=== PATIENT | female | born 1980 | race Caucasian/White ===

== ENCOUNTER 2016-05-30 17:33 | Emergency (ER) | payer BC ==
[2016-05-30 17:43] VITALS: TEMP 98.2
[2016-05-30 18:23] LABS: Basophils # (A) 0.2 k/uL (0-0.2); Basophils % (A) 2 %; CH 29.2; CHCM 33.1; Eosinophils # (A) 0.2 k/uL (0-0.7); Eosinophils % (A) 3 %; HCT 39.4 % (34.0-46.0); HGB 12.7 gm/dL (11.4-16.0); Luc % (Auto) 1; Lymphocytes # (A) 3.2 k/uL (1.0-4.8); Lymphocytes % (A) 36 %; MCH 28.6 pg (25.0-35.0); MCHC 32.3 g/dL (31.0-37.0); MCV 88.6 fL (80.0-100.0); Mean Platelet Volume 7.6; Monocytes # (A) 0.4 k/uL (0-1.0); Monocytes % (A) 5 %; Neutrophils # (A) 4.8 k/uL (1.3-7.7); Neutrophils % (A) 54 %; RBC 4.44 m/uL (3.80-5.40); RDW 12.7 % (11.5-15.5); WBC 8.9 k/uL (3.8-10.6); WBC (Perox) 8.85
--- NOTE | 2016-05-30 18:23 | ED ---
Weakness HPI - General Chief complaint: Weakness Stated complaint: LEFT SIDE FACIAL NUMBNESS, Time Seen by Provider: 05/30/16 17:51 Source: patient, family, RN notes reviewed Mode of arrival: wheelchair Limitations: no limitations - History of Present Illness Initial comments: This is a 35-year-old female with a personally benign past medical history who states she had the onset about a week ago some tongue numbness and change in her taste states she woke up this morning with some left facial numbness some dryness in her left eye. No headache no fevers chills or sweats no weakness to her arms or legs. No trauma. She states she was a family history of strokes heart disease at early age and diabetes she has none of the above. She is nonsmoker may have had a recent upper respiratory infection but no other issues to report. MD Complaint: focal weakness, numbness, tingling - Related Data Previous Rx's Medication Instructions Recorded predniSONE 60 mg PO DAILY #7 tab 05/30/16 valACYclovir HCL [Valacyclovir] 1,000 mg PO TID #21 tab 05/30/16 Allergies Allergy/AdvReac Type Severity Reaction Status Date / Time No Known Allergies Allergy Verified 05/30/16 18:19 Review of Systems ROS Statement: Those systems with pertinent positive or pertinent negative responses have been documented in the HPI. ROS Other: All systems not noted in ROS Statement are negative. Past Medical History Past Medical History: No Reported History History of Any Multi-Drug Resistant Organisms: None Reported Past Surgical History: No Surgical Hx Reported Past Psychological History: Anxiety, Depression Smoking Status: Never smoker Past Alcohol Use History: Rare Past Drug Use History: None Reported General Exam - General Exam Comments Initial Comments: This a well-developed well-nourished awake alert oriented 3 female Limitations: no limitations General appearance: alert, anxious Head exam: Present: other (Some mild left facial asymmetry with some lid lag in the left. The forehead is involved with this.) Eye exam: Present: PERRL, EOMI. Absent: normal appearance Pupils: Present: normal accommodation ENT exam: Present: normal exam, mucous membranes moist Neck exam: Present: normal inspection. Absent: tenderness, meningismus, lymphadenopathy Respiratory exam: Present: normal lung sounds bilaterally. Absent: respiratory distress, wheezes, rales, rhonchi, stridor Cardiovascular Exam: Present: regular rate, normal rhythm, normal heart sounds. Absent: systolic murmur, diastolic murmur, rubs, gallop, clicks GI/Abdominal exam: Present: soft, normal bowel sounds. Absent: distended, tenderness, guarding, rebound, rigid Extremities exam: Present: normal inspection, full ROM, normal capillary refill. 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 Absent: rash Course Vital Signs 05/30/16 17:39 Temperature 98.2 F Pulse Rate 84 Respiratory 20 Rate Blood Pressure 155/84 O2 Sat by Pulse 98 Oximetry EKG Findings - EKG Results: EKG: interpreted by YOSEPH MENSAHL, sinus rhythm, normal axis, normal QRS, normal ST/ T, no acute changes (Sinus rhythm a rate of 89 [place] interval 156 QRS duration 82 T -System QTC of 392/476 st-t wave changes) Medical Decision Making - Medical Decision Making I did a long discussion with patient family members regarding the findings patient's presentation is consistent with Medrano's palsy she'll be placed on appropriate medication she is a follow-up with her doctor and return when necessary - Lab Data Result diagrams: 05/30/16 18:04 05/30/16 18:04 Lab Results 05/30/16 05/30/16 Range/Units 18:04 18:04 WBC 8.9 (3.8-10.6) k/uL RBC 4.44 (3.80-5.40) m/uL Hgb 12.7 (11.4-16.0) gm/dL Hct 39.4 (34.0-46.0) % MCV 88.6 (80.0-100.0) fL MCH 28.6 (25.0-35.0) pg MCHC 32.3 (31.0-37.0) g/dL RDW 12.7 (11.5-15.5) % Plt Count 379 (150-450) k/uL Neutrophils % 54 % Lymphocytes % 36 % Monocytes % 5 % Eosinophils % 3 % Basophils % 2 % Neutrophils # 4.8 (1.3-7.7) k/uL Lymphocytes # 3.2 (1.0-4.8) k/uL Monocytes # 0.4 (0-1.0) k/uL Eosinophils # 0.2 (0-0.7) k/uL Basophils # 0.2 (0-0.2) k/uL Sodium 140 (137-145) mmol/L Potassium 3.9 (3.5-5.1) mmol/L Chloride 101 (98-107) mmol/L Carbon Dioxide 28 (22-30) mmol/L Anion Gap 11 mmol/L BUN 12 (7-17) mg/dL Creatinine 1.00 (0.52-1.04) mg/dL Est GFR (MDRD) Af Amer >60 (>60 ml/min/1.73 sqM) Est GFR (MDRD) Non-Af >60 (>60 ml/min/1.73 sqM) Glucose 110 H (74-99) mg/dL Calcium 9.1 (8.4-10.2) mg/dL Magnesium 2.0 (1.6-2.3) mg/dL Total Bilirubin 0.7 (0.2-1.3) mg/dL AST 28 (14-36) U/L ALT 57 H (9-52) U/L Alkaline Phosphatase 67 (38-126) U/L Total Protein 7.8 (6.3-8.2) g/dL Albumin 4.3 (3.5-5.0) g/dL TSH 1.470 (0.465-4.680) mIU/L - Radiology Data Radiology results: report reviewed (Did review the imaging and report no acute findings), image reviewed Disposition Clinical Impression: Medrano's palsy Disposition: HOME SELF-CARE Condition: Good Instructions: Medrano Palsy (ED) Prescriptions: predniSONE 60 mg PO DAILY #7 tab valACYclovir HCL [Valacyclovir] 1,000 mg PO TID #21 tab
[2016-05-30 18:26] LABS: ALT 57 U/L (9-52); AST 28 U/L (14-36); Alkaline Phosphatase 67 U/L (38-126); Anion Gap 11 mmol/L; Blood Urea Nitrogen 12 mg/dL (7-17); Calcium 9.1 mg/dL (8.4-10.2); Carbon Dioxide 28 mmol/L (22-30); Chloride 101 mmol/L (98-107); Glucose 110 mg/dL (74-99); Non-African American GFR(MDRD) >60 (>60 ml/min/1.73 sqM); Potassium 3.9 mmol/L (3.5-5.1); Sodium 140 mmol/L (137-145); Total Bilirubin 0.7 mg/dL (0.2-1.3); Total Protein 7.8 g/dL (6.3-8.2)
[2016-05-30] MEDS ORDERED: ACYCLOVIR 800 MG TAB PO STA (18:38)
[2016-05-30] MEDS ORDERED: predniSONE 50 MG TAB PO STA (18:38)
--- NOTE | 2016-05-30 18:38 | CT ---
EXAMINATION TYPE: CT brain wo con DATE OF EXAM: 05/30/2016 6:24 PM COMPARISON: NONE HISTORY: left sided tongue numbness and facial droop CT DLP: 1189 mGycm Automated exposure control for dose reduction was used. FINDINGS: There is no acute intracranial hemorrhage, mass effect, or midline shift identified. The ventricles and sulci are within normal limits in size. The globes are intact and the visualized sinuses are walt ar. IMPRESSION: No acute intracranial hemorrhage, mass effect, or midline shift is seen.
[2016-05-30 19:28] VITALS: BP 147/95; PULSE 89; RESP 16
== END 2016-05-30 19:33 | disposition home or self-care (01) ==
LOC: EC 17:33
DX: G51.0 Bell's palsy (principal)
CPT/HCPCS: 99285; 36415; 93005; 80053; 84443; 83735; 85025; 70450; J7512

== ENCOUNTER → 2020-12-21 | Outpatient (CLI) | payer BC ==
--- NOTE | 2020-12-26 11:24 | MM ---
Reason for exam: screening (asymptomatic). Baseline mammogram. History: Patient is nulliparous. Physical Findings: Nurse did not find any significant physical abnormalities on exam. MG 3D Screening Mammo W/Cad Bilateral CC and MLO view(s) were taken. Finding: There is a typically benign 5 mm equal density (isodense), circumscribed oval mass located 8 cm from the nipple in the 1 o'clock upper outer quadrant, middle position of the left breast. Focal asymmetry right upper inner quadrant 8cm from the nipple. ASSESSMENT: Incomplete: need additional imaging evaluation, BI-RAD 0 RECOMMENDATION: Special view mammogram of the right breast. Ultrasound of both breasts. [facility] will attempt to contact patient to return for supplemental views and ultrasound.
== END | disposition home or self-care (01) ==
LOC: RADMAMWWP 10:44
PROVIDERS: ATTEND Family Medicine
DX: Z12.31 Encounter for screening mammogram for malignant neoplasm of breast (principal)
CPT/HCPCS: 77063; 77067

== ENCOUNTER → 2021-01-11 | Outpatient (CLI) | payer BC ==
--- NOTE | 2021-01-11 12:27 | MM ---
Reason for exam: additional evaluation requested from abnormal screening. Last mammogram was performed 1 month ago. History: Patient is nulliparous. Physical Findings: Breast exam preformed at baseline screening. MG 3D Work Up W/Cad RT Spot compression CC, spot compression MLO, XCCL, and LM view(s) were taken of the right breast. Prior study comparison: December 21, 2020, bilateral MG 3d screening mammo w/cad. There are scattered fibroglandular densities. Densities upper outer right breast and upper inner right breast persist. Ultrasound recommended. These results were verbally communicated with the patient and result sheet given to the patient on 01/11/21. ASSESSMENT: Incomplete: need additional imaging evaluation, BI-RAD 0 RECOMMENDATION: Ultrasound of the right breast.
--- NOTE | 2021-01-11 12:29 | USB ---
Reason for exam: additional evaluation requested from abnormal screening. History: Patient is nulliparous. US Breast Workup Limited GABRIELLA Right limited breast ultrasound including focal area of concern, retroareolar and axilla demonstrates a 1.0 x 0.9 x 0.9cm hypoechoic lesion at 12 o'clock, biopsy recommended. Left limited breast ultrasound including focal area of concern, retroareolar and axilla demonstrates a 0.7 x 0.3 x 0.6cm cystic lesion at 1 o'clock. These results were verbally communicated with the patient and result sheet given to the patient on 01/11/21. ASSESSMENT: Suspicious, BI-RAD 4 RECOMMENDATION: Ultrasound core biopsy of the right breast. (12 o'clock) Called Dr. Tamez's office with mammographic findings and has scheduled an appointment for the patient for 02/01/21 at 4:[address] Orosco. Biopsy schedueled for 01/19/21 at 10:30. PRELIMINARY REPORT CALLED AND FAXED TO DR. OROSCO ON 01/11/21.
== END | disposition home or self-care (01) ==
LOC: RADMAMWWP 08:11
PROVIDERS: ATTEND Family Medicine
DX: N64.89 Other specified disorders of breast (principal); N60.02 Solitary cyst of left breast
CPT/HCPCS: 77061; 77065

== ENCOUNTER → 2021-01-19 | Day surgery (SDC) | payer BC ==
[2021-01-19 10:32] VITALS: RESP 16
[2021-01-19 11:51] VITALS: BP 130/84; PULSE 69; TEMP 98.3
--- NOTE | 2021-01-19 13:10 | USB ---
EXAMINATION TYPE: US biopsy breast VAD RT DATE OF EXAM: 01/19/2021 CLINICAL HISTORY: R92.8 ABNORMAL MAMMOGRAM. TECHNIQUE: Ultrasound guided vaccuum assisted core biopsy of right breast. COMPARISON: Ultrasound 01/11/2021 FINDINGS: The ultrasound guided core biopsy procedure was explained to the patient. The risks, benef its, alternatives were discussed. An informed consent was then obtained. Timeout was performed. The patient was placed in supine positioning for imaging and for the procedure. The overlying skin w as prepped with betadine and sterilely draped in usual sterile fashion. Lidocaine 1% was used as ane sthetic into the skin and deeper breast tissue up to area of concern in the breast. A small skin corie k was made with surgical scalpel. Under ultrasound guidance, a 12-gauge vacuum assisted biopsy device was used to obtain 6 core samples . A biopsy clip was left in lesion. Ribbon clip was placed. Good hemostasis was obtained with direct pressure. Discharge instructions were discussed with the pa janey. The patient will follow up with the referring physician for results. Postprocedure mammogram: The patient was transferred to mammography for physician ordered post proced ure mammogram for clip placement verification. The clip is in the expected region of the biopsy. The patient tolerated the procedure well without any immediate complication. The patient was dischar ged to home in stable condition. IMPRESSION: 1. Successful ultrasound guided biopsy right breast. Recommendations: 1. Recommendations are pending pathology results.
== END ==
LOC: RADUSWWP 10:03
PROVIDERS: ATTEND Surgery
DX: D24.1 Benign neoplasm of right breast (principal)
CPT/HCPCS: 88305; 77065; 19083; A4648; J2001

== ENCOUNTER → 2021-07-24 | Outpatient (CLI) | payer BC ==
--- NOTE | 2021-07-24 11:27 | MM ---
Reason for exam: follow-up at short interval from prior study. Last mammogram was performed 6 months ago. History: Patient is nulliparous. Benign US biopsy breast VAD RT of the right breast, January 19, 2021. Physical Findings: A clinical breast exam by your physician is recommended on an annual basis and results should be correlated with mammographic findings. MG 3D Diag Mammo W/Cad GABRIELLA Bilateral CC and MLO view(s) were taken. Prior study comparison: January 19, 2021, right breast MG diagnostic mammo RT wo CAD. January 11, 2021, right breast MG 3d work up w/cad RT. There are scattered fibroglandular densities. No significant new findings when compared with previous films. These results were verbally communicated with the patient and result sheet given to the patient on 07/24/21. ASSESSMENT: Benign, BI-RAD 2 RECOMMENDATION: Routine screening mammogram of both breasts in 1 year.
== END | disposition home or self-care (01) ==
LOC: RADMAMWWP 10:50
PROVIDERS: ATTEND Surgery
DX: R92.8 Other abnormal and inconclusive findings on diagnostic imaging of breast (principal)
CPT/HCPCS: 77062; 77066

== ENCOUNTER → 2023-02-27 | Outpatient (CLI) | payer BC ==
--- NOTE | 2023-02-27 13:00 | FL ---
EXAMINATION TYPE: FL barium swallow w video DATE OF EXAM: 02/27/2023 CLINICAL HISTORY: 42-year-old female R1 3.12, oropharyngeal phase Dysphagia. Gagging especially at n ight with occasional vomiting. TECHNIQUE: Deglutition study is performed utilizing thin liquid barium, barium thick pudding, and ba rium coated cracker. Total fluoroscopy time: 36 seconds DOSE AREA PRODUCT (DAP) UGY*M,MGY*CM: 5 Total images: None. Real-time fluoroscopy support was provided to speech pathology. COMPARISON: None. FINDINGS: The oral and pharyngeal phases show satisfactory initiation and propagation with all modalities teste d. Normal mastication is seen with solid modalities tested. There is no evidence of penetration or aspiration with any modality tested. No significant pharyngeal residue was appreciated. IMPRESSION: Normal dynamic swallow study. Please refer to speech therapist notes for further details if necessa ry.
== END | disposition home or self-care (01) ==
LOC: RADFLMAIN 10:52
PROVIDERS: ATTEND Otolaryngology
DX: R13.12 Dysphagia, oropharyngeal phase (principal); R11.10 Vomiting, unspecified
CPT/HCPCS: 74230

== ENCOUNTER → 2023-05-31 | Day surgery (SDC) | payer BC ==
[2023-05-24 15:57] VITALS: BMI 35.6
[~2023-05-31] MED LIST: DEXAMETHASONE SOD PHOSPHATE 10 MG/ML 1 ML VIAL IVP ONE; KETAMINE HCL IN 0.9 % NACL 50 MG/5 ML SYRINGE ONE; LACTATED RINGERS 1,000 ML IV ONE; LACTATED RINGERS 1,000 ML IV SCH; LIDOCAINE 1% INJ 10MG/ML (20 ML MDV) ONE; LIDOCAINE 2% INJ 20 MG/ML INTRATRACH ONE; ONDANSETRON 4 MG/2 ML VIAL IVP ONE; ONDANSETRON 4 MG/2 ML VIAL ONE; PROPOFOL 10 MG/ML 20 ML VIAL IV ONE
[2023-05-31 12:17] VITALS: RESP 16; TEMP 98.6
--- NOTE | 2023-05-31 12:50 | PCN ---
PROCEDURE NOTE PROCEDURES PERFORMED: Bronchoscopy, airway examination, therapeutic lavage, BAL right middle lobe. PREOPERATIVE DIAGNOSIS: Chronic cough. POSTOPERATIVE DIAGNOSIS: Chronic cough. CIGAR ROLLER: First surgical services coordinator was Dr. Dayan Springer. ANESTHESIA: Provided general anesthesia. DESCRIPTION OF PROCEDURE: The patient's procedure took place in room #1 [facility]. There was informed consent and universal timeout. After the patient was adequately sedated and being fully monitored, the bronchoscope was inserted through the right nostril. It passed through the right nasopharynx into the oropharynx. The hypopharynx was identified and topicalized. The hypopharyngeal structures appeared normal including anterior commissure, true cords, false cords, arytenoids, piriform sinuses, right and left, vallecula. After topicalization, the bronchoscope was pushed through the glottic opening into the trachea. Trachea appeared normal. There was no tracheal mass or tumor. There were no secretions. Tracheal margoth was sharp. Next the right and left mainstem were topicalized. The right upper lobe and its 3 segments, right middle lobe and its 2 segments, right lower lobe and its 5 segments, left upper lobe proper and its 2 segments, lingula and its 2 segments and left lower lobe and its 4 segments were all found to be relatively normal. There was chzo-ni-qjmmnrls bronchitis. There was no bleeding. There was no dominant mass or tumor. There were minimal frothy secretions. The bronchoscope was then wedged into the middle lobe. We did a formal BAL. 30 mL of fluid was recovered. It was mildly turbid. The fluid will be sent for analysis. After the procedure was completed, any additional secretions were suctioned and the bronchoscope was withdrawn. The patient will be recovered. There was no immediate complication. MMODL / IJN: [id number] /
[2023-05-31 13:05] VITALS: BP 144/88; PULSE 79
[2023-06-01 05:55] LABS: Appearance,BF Cloudy (Clear); RBC, Body Fluid 3688 /UL (0-2000)
[2023-06-03 09:29] LABS: Nucleated Cells, Body Fluid 203 /UL
== END | disposition home or self-care (01) ==
LOC: ORWHC2ENDO 11:25
PROVIDERS: ATTEND Internal Medicine Critical Care Medicine
DX: J40 Bronchitis, not specified as acute or chronic (principal); Z79.899 Other long term (current) drug therapy; D50.9 Iron deficiency anemia, unspecified; F41.9 Anxiety disorder, unspecified; F32.A Depression, unspecified; K21.9 Gastro-esophageal reflux disease without esophagitis; Z80.9 Family history of malignant neoplasm, unspecified
CPT/HCPCS: 81025; 88108; 88305; 89050; 87070; 87205; 87116; 87102; 87206; 31624; J2001 ×2; J1100; J2405; J2704

== ENCOUNTER → 2023-07-19 | Outpatient (CLI) | payer BC ==
--- NOTE | 2023-07-21 20:58 | CT ---
EXAMINATION TYPE: High-resolution CT chest DATE OF EXAM: 07/19/2023 COMPARISON: Radiographs 05/16/2023 HISTORY: 42-year-old female J40, bronchitis not specified as acute or chronic, cough TECHNIQUE: Thin cut CT of the chest in both prone and supine positioning per HRCT protocol. Additiona l expiratory phase was obtained. No IV contrast. CT DLP: 1387.5mGycm. Automatic exposure control utilized for a dose reduction. FINDINGS: The heart is normal size without pericardial effusion. Aorta normal caliber with conventional arch vessel branching anatomy. No thoracic lymph adenopathy by CT size criteria. There is mild diffuse bronchial wall thickening without consolidation or pleural effusion. No honeyco mbing, thickening of the bronchovascular bundles, dominant groundglass, centrilobular nodules, tree-i n-bud opacities, significant emphysema, or perilymphatic nodularity. No consolidation or pleural effu goldie. Some generalized groundglass atelectasis develops on expiratory phase. There appears to be a very large mass at the left upper quadrant measuring at least 12.0 cm. Further contrast enhanced evaluation of the abdomen and pelvis is advised. Differential consideration include s a large RCC. IMPRESSION: 1. Note incidentally visualized large mass of the left upper quadrant measuring at least 12.0 cm. Pos sible RCC. Further contrast enhanced CT of the abdomen and pelvis is advised. 2. Bronchial wall thickening suggests bronchitis or chronic asthma. No other acute process or other s pecific findings of an interstitial pneumonitis is seen.
== END | disposition home or self-care (01) ==
LOC: RADCTMAIN 13:04
PROVIDERS: ATTEND Internal Medicine Critical Care Medicine
DX: J98.09 Other diseases of bronchus, not elsewhere classified (principal); J40 Bronchitis, not specified as acute or chronic; J84.9 Interstitial pulmonary disease, unspecified
CPT/HCPCS: 71250

== ENCOUNTER → 2023-08-07 | Outpatient (CLI) | payer BC ==
--- NOTE | 2023-08-07 13:53 | CT ---
EXAMINATION TYPE: CT abdomen w con CT DLP: 1523 mGycm, Automated exposure control for dose reduction was used. DATE OF EXAM: 08/07/2023 1:38 PM COMPARISON: None. CLINICAL INDICATION:Female, 42 years old with history of C83.33 LYMPHOMA; renal mass TECHNIQUE: Axial CT of the abdomen and pelvis. Sagittal and coronal reformats were created on a [employer] workstation. Contrast used:100 mL of Isovue 300 with IV Contrast, (none if empty) Oral contrast used: with Oral Contrast (none if empty) FINDINGS: LOWER CHEST: Unremarkable ABDOMEN LIVER: Unremarkable GALLBLADDER AND BILE DUCTS: Unremarkable. PANCREAS: Unremarkable. SPLEEN: Unremarkable. ADRENAL GLANDS: Unremarkable. KIDNEYS AND URETERS: Right kidney solid appearing lesion involving the inferior pole measuring 2.6 cm . Additional right renal cysts are appreciated. Large heterogenous left renal mass measuring 12.4 x 10.4 cm in the axial plane. The mass does extend to involve the region of the renal pelvis. No calcifications are appreciated. The mass doesn't enhanc e heterogenous lytic, with suspected low attenuation/necrotic internal portions. Mass does create ma ss effect upon the surrounding intra-abdominal structures but appears to be contained within the negra ta's fascia. STOMACH AND BOWEL: Stomach and duodenum are unremarkable No evidence of bowel obstruction. PERITONEUM/RETROPERITONEUM: No evidence of pneumoperitoneum or free fluid. VASCULATURE: No evidence of aortic aneurysm. MUSCULOSKELETAL: No acute osseous abnormalities. Moderate disc degeneration changes are present throu ghout the thoracolumbar spine. LYMPH NODES: No gross evidence for lymphadenopathy. SOFT TISSUE/ABDOMINAL WALL: Unremarkable IMPRESSION: 1. Large heterogenous left renal mass. Further evaluation via tissue sampling is recommended to excl ude underlying malignancy. 2. Nonspecific solid-appearing right renal lesion measuring 2.5 cm. Consider further evaluation with dedicated MRI of the abdomen renal mass protocol or comparison with any outside imaging to assess sta bility.
== END | disposition home or self-care (01) ==
LOC: RADCTMAIN 12:15
PROVIDERS: ATTEND Internal Medicine Critical Care Medicine
DX: N28.89 Other specified disorders of kidney and ureter (principal); C83.33 Diffuse large B-cell lymphoma, intra-abdominal lymph nodes; R19.09 Other intra-abdominal and pelvic swelling, mass and lump
CPT/HCPCS: 74160; Q9967

== ENCOUNTER → 2023-08-24 | Outpatient (CLI) | payer BC ==
--- NOTE | 2023-08-28 19:35 | MR ---
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 TECHNIQUE: Multiplanar multi-sequence imaging was performed without contrast. Post contrast imaging was performed. Post IV contrast subtraction images were also submitted for review. IV Contrast: 10.5 cc Gadavist FINDINGS: LOWER CHEST: No gross irregularity. ABDOMEN Liver: No evidence for hepatic steatosis or cirrhosis. Gallbladder and Bile ducts: No evidence for ductal dilation, or biliary stricture or evidence of chol edocholithiasis. The gallbladder is within normal limits. Pancreas: No ductal dilation. No evidence for solid mass. Spleen: Normal for size. Adrenal glands: Unremarkable. Kidneys: Multiple right renal masses the largest medially measuring 35 x 26 mm, laterally 27 x 20 mm. In the s uperior renal pole and more inferiorly anteriorly in the inferior renal pole measuring 35 x 24 mm. Additional right renal high T2 signal appearing cyst. Large left renal mass measuring 13.5 x 11.42 m. Stomach and Bowel: No evidence for bowel wall thickening or evidence for obstruction. Scattered colon ic diverticula present. Retroperitoneum/Peritoneum: No evidence of pneumoperitoneum or free fluid. Vasculature: No aortic aneurysm. Musculoskeletal: The osseous structures appear intact. Lymph Nodes: Left retroperitoneal lymph node measuring 9 mm possibly representing early metastatic di sease. Abdominal wall: Unremarkable. Reproductive: Multiple low T2 signal fibroid changes are present. IMPRESSION: 1. Multiple bilateral renal masses. Multiple bilateral renal masses can be seen in lymphoma possibly a underlying hereditary syndrome such as von Hippel-Lindau, tuberous sclerosis versus others. Tissue sampling recommended for definitive diagnosis. Urology consultation recommended. 2. Single left retroperitoneal lymph node suspicious for metastatic disease.
== END | disposition home or self-care (01) ==
LOC: RADMRIMAIN 09:15
PROVIDERS: ATTEND Urology
DX: D41.02 Neoplasm of uncertain behavior of left kidney (principal); D41.01 Neoplasm of uncertain behavior of right kidney; N28.89 Other specified disorders of kidney and ureter
CPT/HCPCS: 74183; A9585

== ENCOUNTER → 2023-08-29 | Outpatient (CLI) | payer BC ==
--- NOTE | 2023-08-30 07:53 | NM ---
EXAMINATION TYPE: NM bone scan whole body DATE OF EXAM: 08/29/2023 COMPARISON: CT abdomen 08/07/2011 CLINICAL INDICATION: Female, 42 years old with history of D41.02 RENAL MASS D41.01; Delayed whole-body scanning was performed following the injection of 20 2. mCi Tc 99m MDP. Images ac quired four hours post injection. FINDINGS: Abnormal uptake moderate intensity in diaphysis of the left femur. No prior x-rays available. Recomme nd correlation with x-ray. Finding nonspecific. Abnormal uptake involving the calvarium on the basis of hyperostosis. Abnormal uptake involving the shoulders and likely post arthritic. There is abnormal uptake involving the right ankle which could be posttraumatic or post arthritic. Abnormal uptake involving the left fifth digit compatible with post arthritic change. Asymmetric increased uptake along the left iliac crest appears to correspond to the enthesophyte by r ecent CT scan. There is reduced uptake involving the knee joint. Correlate for prior surgery. Finding is symmetric. Otherwise, would recommend x-ray correlation. Mild intensity uptake involving the mid and lower thoracic spine most likely is degenerative. IMPRESSION: Abnormal uptake involving the left mid diaphysis of the femur is nonspecific. Recommend x-ray correla tion.
== END | disposition home or self-care (01) ==
LOC: RADNMMAIN 10:50
PROVIDERS: ATTEND Urology
DX: D41.02 Neoplasm of uncertain behavior of left kidney (principal); D41.01 Neoplasm of uncertain behavior of right kidney
CPT/HCPCS: 78306; A9503

== ENCOUNTER 2023-09-13 10:03 | Emergency (ER) | payer BC ==
--- NOTE | 2023-09-13 10:25 | ED ---
Recheck HPI - General Source: patient, RN notes reviewed <Bárbara Hernandez - Last Filed: 09/13/23 10:22> - General Source: patient, family, RN notes reviewed, old records reviewed Limitations: no limitations <Deangelo Longoria - Last Filed: 09/13/23 19:14> - General Stated Complaint: Abn labs Time Seen by Provider: 09/13/23 10:18 - History of Present Illness Initial Comments: Quick noteis a 43-year-old female with a history of kidney cancer who presents emergency department chief complaint of low hemoglobin. Patient states that she was contacted by her PCP Dr. Mathur to report to the ER for a low Hgb level of 7. Patient denies current chemo and radiation. (Bárbara Hernandez) Patient is a 43-year-old female presenting to the emergency department with anemia. Patient does have chronic anemia. Patient has a recent diagnosis of renal cell cancer bilaterally. Patient is pending appointment at [facility] next week for probable surgical extraction. No chemotherapy at this time. Patient also just finished her menstrual cycle. No dark tarry stools. No hematuria. No hematochezia or hematemesis. Patient has been fatigued for several months with decreased appetite. Patient last hemoglobin was 8.7. Recheck yesterday was below 7. Patient was sent by her doctor for blood work. (Deangelo Longoria) - Related Data Home Medications Medication Instructions Recorded Confirmed Ferrous Sulfate [Iron (65 MG 325 mg PO DAILY 05/24/23 09/13/23 Elemental)] Albuterol Inhaler [Ventolin Hfa 2 puff INHALATION RT-Q4H PRN 09/13/23 09/13/23 Inhaler] Albuterol Nebulized [Ventolin 2.5 mg INHALATION RT-QID PRN 09/13/23 09/13/23 Nebulized] Cholecalciferol [Vitamin D3 (25 25 mcg PO DAILY 09/13/23 09/13/23 Mcg = 1000 Iu)] Allergies Allergy/AdvReac Type Severity Reaction Status Date / Time No Known Allergies Allergy Verified 09/13/23 16:22 Review of Systems ROS Other: All systems not noted in ROS Statement are negative. <Bárbara Hernandez - Last Filed: 09/13/23 10:22> ROS Other: All systems not noted in ROS Statement are negative. Constitutional: Denies: fever Eyes: Denies: eye pain ENT: Denies: ear pain Respiratory: Reports: cough (Chronic, unchanged). Denies: dyspnea Cardiovascular: Denies: chest pain Endocrine: Reports: fatigue Gastrointestinal: Denies: abdominal pain, hematemesis, melena, hematochezia Genitourinary: Denies: dysuria, hematuria Musculoskeletal: Denies: back pain Skin: Denies: rash <Deangelo Longoria - Last Filed: 09/13/23 19:14> ROS Statement: Those systems with pertinent positive or pertinent negative responses have been documented in the HPI. Past Medical History Past Medical History: No Reported History Additional Past Medical History / Comment(s): cough that won't go away History of Any Multi-Drug Resistant Organisms: None Reported Past Surgical History: Appendectomy, Orthopedic Surgery Additional Past Surgical History / Comment(s): 1998- ovarian cyst removal. left leg fracture-surgery age 12 Additional Past Anesthesia/Blood Transfusion Reaction / Comment(s): states had a fever for three days after anesthesia. no blood transfusion Smoking Status: Never smoker - Past Family History Father Family Medical History: Cancer Additional Family Medical History / Comment(s): agent orange Mother Family Medical History: Cancer Additional Family Medical History / Comment(s): kidney <Bárbara Hernandez - Last Filed: 09/13/23 10:22> General Exam <Bárbara Hernandez - Last Filed: 09/13/23 10:22> Limitations: no limitations General appearance: alert, in no apparent distress Head exam: Present: normocephalic Eye exam: Present: normal appearance ENT exam: Present: normal oropharynx Neck exam: Present: normal inspection Respiratory exam: Present: normal lung sounds bilaterally Cardiovascular Exam: Present: regular rate, normal rhythm GI/Abdominal exam: Present: soft. Absent: tenderness Rectal exam: Present: deferred (Discussion had with patient however she refuses ) Extremities exam: Present: normal inspection Neurological exam: Present: alert Psychiatric exam: Present: normal affect, normal mood Skin exam: Present: normal color <Deangelo Longoria - Last Filed: 09/13/23 19:14> - General Exam Comments Initial Comments: Visual Physical Exam Vital signs reviewed General: Well-appearing, nontoxic, no acute distress. Head: Normocephalic, atraumatic Eyes: PERRLA, EOMI ENT: Airway patent Chest: Nonlabored breathing Skin: No visual rash, normal skin tone Neuro: Alert and oriented 3 Musculoskeletal: No gross abnormalities (Bárbara Hernandez) Course Vital Signs 09/13/23 09/13/23 10:20 19:08 Temperature 98.6 F 98.4 F Pulse Rate 92 84 Respiratory 18 18 Rate Blood Pressure 131/79 140/77 O2 Sat by Pulse 97 100 Oximetry Medical Decision Making <Bárbara Hernandez - Last Filed: 09/13/23 10:22> - Lab Data Result diagrams: 09/13/23 10:48 09/13/23 10:48 <Deangelo Longoria - Last Filed: 09/13/23 19:14> - Medical Decision Making I completed the quick note portion of this chart signed Bárbara Hernandez PA-C (Bárbara Hernandez) Was pt. sent in by a medical professional or institution ([facility], NEWSPAPER LIBRARY MANAGER, urgent care, hospital, or fdc...) When possible be specific @ -Patient was sent in by her primary care physician Did you speak to anyone other than the patient for history (EMS, parent, family, police, friend...)? What history was obtained from this source @ -Family is present and helps provide history including history of renal cell carcinoma and plan for surgical consultation next week Did you review nursing and triage notes (agree or disagree)? Why? @ -I reviewed and agree with nursing and triage notes Were old charts reviewed (outside hosp., previous admission, EMS record, old EKG, old radiological studies, urgent care reports/EKG's, fdc records)? Report findings @ -Previous CT scan abdomen pelvis reviewed showing similar findings to today Differential Diagnosis (chest pain, altered mental status, abdominal pain women, abdominal pain men, vaginal bleeding, weakness, fever, dyspnea, syncope, headache, dizziness, GI bleed, back pain, seizure, CVA, palpatations, mental health, musculoskeletal)? @ -Differential Weakness: Hypoglycemia, shock, sepsis, hyponatremia, anemia, infection, OH, ETOH, adverse medicine reaction, overdose, stroke, this is not meant to be an all-inclusive list. EKG interpreted by me (3pts min.). @ -As above X-rays interpreted by me (1pt min.). @ -None done CT interpreted by me (1pt min.). @ -CT scan abdomen pelvis shows renal disease left greater than right. U/S interpreted by me (1pt. min.). @ -None done What testing was considered but not performed or refused? (CT, X-rays, U/S, labs)? Why? @ -Recommended Hemoccult however patient refuses What meds were considered but not given or refused? Why? @ -None Did you discuss the management of the patient with other professionals (professionals i.e. , PA, NEWSPAPER LIBRARY MANAGER, lab, RT, psych nurse, manager social work, film composer, teacher, campus security officer, piano case and bench assembler)? Give summary @ -Case was discussed with Dr. Snyder who did discuss the case with primary care physician. He recommends CT scan of the abdomen and pelvis and felt otherwise could be discharged Was smoking cessation discussed for >3mins.? @ -No Was critical care preformed (if so, how long)? @ -31 minutes critical care Were there social determinants of health that impacted care today? How? (Homelessness, low income, unemployed, alcoholism, drug addiction, transportation, low edu. Level, literacy, decrease access to med. care, [facility], rehab)? @ -No Was there de-escalation of care discussed even if they declined (Discuss DNR or withdrawal of care, Hospice)? DNR status @ -No What co-morbidities impacted this encounter? (DM, HTN, Smoking, COPD, CAD, Cancer, CVA, ARF, Chemo, Hep., AIDS, mental health diagnosis, sleep apnea, morbid obesity)? @ -Renal cell cancer Was patient admitted / discharged? Hospital course, mention meds given and route, prescriptions, significant lab abnormalities, going to OR and other pertinent info. @ -Patient reevaluated. Patient and family are updated on results and plan. Patient would like to be discharged and is agreeable with close follow-up as planned. Undiagnosed new problem with uncertain prognosis? @ -No Drug Therapy requiring intensive monitoring for toxicity (Heparin, Nitro, Insulin, Cardizem)? @ -Blood transfusion Were any procedures done? @ -No Diagnosis/symptom? @ -Anemia, renal cell carcinoma Acute, or Chronic, or Acute on Chronic? @ -Acute, acute on chronic Uncomplicated (without systemic symptoms) or Complicated (systemic symptoms)? @ -Default Side effects of treatment? @ -No Exacerbation, Progression, or Severe Exacerbation? @ -No Poses a threat to life or bodily function? How? (Chest pain, [place], [place], pneumonia, PE, COPD, DKA, ARF, appy, cholecystitis, CVA, Diverticulitis, Homicidal, Suicidal, threat to staff... and all critical care pts) @ -Potential threat to organ function (Deangelo Longoria) - Lab Data Lab Results 09/13/23 09/13/23 09/13/23 Range/Units 10:48 10:48 16:50 WBC 6.5 (3.8-10.6) k/uL RBC 3.16 L (3.80-5.40) m/uL Hgb 6.5 L* (11.4-16.0) gm/dL Hct 22.7 L (34.0-46.0) % MCV 71.9 L (80.0-100.0) fL MCH 20.5 L (25.0-35.0) pg MCHC 28.5 L (31.0-37.0) g/dL RDW 16.2 H (11.5-15.5) % Plt Count 618 H (150-450) k/uL MPV 6.4 Neutrophils % 61 % Lymphocytes % 27 % Monocytes % 8 % Eosinophils % 2 % Basophils % 1 % Neutrophils # 3.9 (1.3-7.7) k/uL Lymphocytes # 1.7 (1.0-4.8) k/uL Monocytes # 0.5 (0-1.0) k/uL Eosinophils # 0.1 (0-0.7) k/uL Basophils # 0.0 (0-0.2) k/uL Hypochromasia Marked Anisocytosis Slight Microcytosis Moderate Sodium 137 (137-145) mmol/L Potassium 4.3 (3.5-5.1) mmol/L Chloride 105 (98-107) mmol/L Carbon Dioxide 24 (22-30) mmol/L Anion Gap 8 mmol/L BUN 18 H (7-17) mg/dL Creatinine 1.04 (0.52-1.04) mg/dL Est GFR (CKD-EPI)AfAm 76 (>60 ml/min/1.73 sqM) Est GFR (CKD-EPI)NonAf 66 (>60 ml/min/1.73 sqM) Glucose 103 H (74-99) mg/dL Calcium 10.7 H (8.4-10.2) mg/dL Total Bilirubin 0.6 (0.2-1.3) mg/dL AST 34 (14-36) U/L ALT 54 H (4-34) U/L Alkaline Phosphatase 321 H (38-126) U/L Total Protein 7.1 (6.3-8.2) g/dL Albumin 3.2 L (3.5-5.0) g/dL Blood Type A Negative Blood Type Recheck A Neg Bld Type Recheck Status No Antibody Screen NEGATIVE Crossmatch See Detail Spec Expiration Date 09/16/20232349 Critical Care Time Critical Care Time: Yes <Deangelo Longoria - Last Filed: 09/13/23 19:14> Disposition <Bárbara Hernandez - Last Filed: 09/13/23 10:22> Is patient prescribed a controlled substance at d/c from ED?: No Time of Disposition: 19:13 <Deangelo Longoria - Last Filed: 09/13/23 19:14> Clinical Impression: Anemia, Renal cell carcinoma Disposition: HOME SELF-CARE Condition: Stable Instructions (If sedation given, give patient instructions): Anemia (ED) Additional Instructions: Please follow-up with your primary care physician Saturday. Please also follow-up with surgeon beginning of the week as planned. Consider follow-up with oncology or urology as discussed with primary care physician if needed. Return for increased weakness or fatigue, pain or fever, worsening symptoms or any other concerns. Referrals: Renetta Mathur [Primary Care Provider] - 1-2 days
[2023-09-13 11:21] LABS: Anisocytosis Slight; Basophils % (A) 1 %; Eosinophils # (A) 0.1 k/uL (0-0.7); Eosinophils % (A) 2 %; HCT 22.7 % (34.0-46.0); Hypochromasia Marked; Lymphocytes # (A) 1.7 k/uL (1.0-4.8); Lymphocytes % (A) 27 %; MCH 20.5 pg (25.0-35.0); MCHC 28.5 g/dL (31.0-37.0); MCV 71.9 fL (80.0-100.0); Mean Platelet Volume 6.4; Microcytosis Moderate; Monocytes # (A) 0.5 k/uL (0-1.0); Monocytes % (A) 8 %; Neutrophils # (A) 3.9 k/uL (1.3-7.7); Neutrophils % (A) 61 %; Platelet Count 618 k/uL (150-450); RBC 3.16 m/uL (3.80-5.40); RDW 16.2 % (11.5-15.5); WBC 6.5 k/uL (3.8-10.6)
[2023-09-13 11:23] LABS: ALT 54 U/L (4-34); AST 34 U/L (14-36); African American GFR (CKD) 76 (>60 ml/min/1.73 sqM); Albumin 3.2 g/dL (3.5-5.0); Alkaline Phosphatase 321 U/L (38-126); Anion Gap 8 mmol/L; Blood Urea Nitrogen 18 mg/dL (7-17); Calcium 10.7 mg/dL (8.4-10.2); Carbon Dioxide 24 mmol/L (22-30); Chloride 105 mmol/L (98-107); Glucose 103 mg/dL (74-99); Non-African American GFR(CKD) 66 (>60 ml/min/1.73 sqM); Potassium 4.3 mmol/L (3.5-5.1); Sodium 137 mmol/L (137-145); Total Bilirubin 0.6 mg/dL (0.2-1.3); Total Protein 7.1 g/dL (6.3-8.2)
[2023-09-13 11:24] LABS: HGB 6.5 gm/dL (11.4-16.0)
--- NOTE | 2023-09-13 18:11 | CT ---
EXAMINATION TYPE: CT abdomen pelvis w con DATE OF EXAM: 09/13/2023 COMPARISON: 08/07/2023 HISTORY: Anemia, renal cell CA. CT DLP: 1578.3 mGycm Automated exposure control for dose reduction was used. TECHNIQUE: Helical acquisition of images was performed from the lung bases through the pelvis. CONTRAST: Performed without Oral Contrast and with IV Contrast, patient injected with 100 ml mL of Isovue 300. FINDINGS: The lung bases are clear. The gallbladder is normal without distention, wall thickening, pericholecystic fluid or gallstones. T here is no biliary ductal dilatation. There is no focal mass or organomegaly involving the liver, pancreas, spleen or adrenal glands. There is a 12 cm x 11 cm heterogeneous left renal mass consistent with renal cell carcinoma. It is es sentially unchanged in size. There is a 2.5 cm solid mass of the posterior right kidney and a 2.4 cm solid mass of the anterior ri ght kidney both unchanged compared to previous and consistent with renal cell carcinoma. There is no retroperitoneal adenopathy or hemorrhage in the caliber of the abdominal aorta is normal. The bowel loops are normal in caliber and there is no evidence of dilatation or obstruction. No infla mmatory changes are identified in the bowel wall or mesentery. There is no free intraperitoneal air or fluid. There is a bulky fibroid uterus. No pelvic mass, free fluid, abscess or adenopathy. The osseous structures and soft tissues are intact. IMPRESSION: 1. Essentially no change in the large left renal cell carcinoma. 2. No change in the small right renal masses suspicious for renal cell carcinoma. 3. No focal osseous lesions. 4. No retroperitoneal adenopathy or hemorrhage. 5. Bulky fibroid uterus
[2023-09-13 22:17] VITALS: BP 133/77; PULSE 87; RESP 16; TEMP 98.7
== END 2023-09-13 22:09 | disposition home or self-care (01) ==
LOC: EC 10:03
DX: D64.9 Anemia, unspecified (principal); C64.1 Malignant neoplasm of right kidney, except renal pelvis; C64.2 Malignant neoplasm of left kidney, except renal pelvis
CPT/HCPCS: 99285; 36430; 36415; 86900; 86901; 80053; 85025; 86850; 86920; 74177; P9016; Q9967